=== PATIENT | female | born 1955 | race Caucasian/White ===

== ENCOUNTER 2024-09-12 06:41 | Day surgery (SDC) | payer MEDICARE ==
[2024-09-11 12:13] VITALS: BMI 23.8
[~2024-09-12 06:41] MED LIST: EPINEPHrine 0.3 MG in Ophthalmic Irrigation Solution 500 ML IRR SCH
[2024-09-12] MEDS ORDERED: Cyclopentolate 1% Opth Drop 2 ML BOT ONE (07:15)
[2024-09-12] MEDS ORDERED: PHENYLephrine 2.5% Ophth Soln 15 ml Bottle ONE (07:15)
[2024-09-12] MEDS ORDERED: PROPOFOL 20 ML ONE (07:47)
[2024-09-12] MEDS ORDERED: fentaNYL 50 mcg/mL 1 mL Vial ONE (07:47)
[2024-09-12] MEDS ORDERED: Midazolam HCl 2 mg/2 ml Vial ONE (07:47)
[2024-09-12] MEDS ORDERED: Bupivacaine 0.75% 10 ML VIAL ONE (08:09)
[2024-09-12] MEDS ORDERED: CEFAZOLIN 1 GM VIAL ONE (08:09)
[2024-09-12] MEDS ORDERED: Ondansetron PF 4 MG/2 ML Vial ONE (08:09)
[2024-09-12] MEDS ORDERED: Lidocaine 4% PF 5 ML AMP ONE (08:09)
[2024-09-12] MEDS ORDERED: Dexamethasone 4 mg/ml Vial ONE ×2 (08:09→08:20)
[2024-09-12] MEDS ORDERED: Lidocaine 1% PF 5 ML VIAL ONE (08:09)
[2024-09-12] MEDS ORDERED: Maxitrol 0.1% Opth Oint 3.5 GM TUBE ONE (08:09)
== END 2024-09-12 09:14 | disposition home or self-care (01) ==
LOC: SDC 06:41
PROVIDERS: ATTEND Ophthalmology Retina Specialist
PROC: 08T53ZZ Resection of Left Vitreous, Percutaneous Approach (ICD-10-PCS; principal; 2024-09-12)
DX: H43.312 Vitreous membranes and strands, left eye (principal); Z88.2 Allergy status to sulfonamides; Z88.0 Allergy status to penicillin; Z88.5 Allergy status to narcotic agent; Z79.890 Hormone replacement therapy; Z79.899 Other long term (current) drug therapy
CPT/HCPCS: 67041; J0171; J0690; J1100; J2250; J2405; J2704; J3010; J3490